=== PATIENT | female | born 1970 | race Caucasian/White ===

== ENCOUNTER 2022-10-10 12:32 | Emergency (ER) | payer OTHER ==
[2022-10-10 13:31] VITALS: TEMP 98.7
--- NOTE | 2022-10-10 14:02 | XRAY ---
Indication: Pain and swelling following fall. Comparison: None 3 portable views right ankle demonstrates 3 mm irregular linear ossification anterior to talus with soft tissue swelling concerning for displaced cortical fracture. Incidental small plantar heel spur and tiny cuboid accessory ossicles. No other bony, articular, or soft tissue abnormalities.
--- NOTE | 2022-10-10 14:06 | XRAY ---
Indication: Pain and swelling following fall. Comparison: None 3 portable nonweightbearing views right foot demonstrates new 3 mm irregular linear ossification anterior to talus with soft tissue swelling concerning for displaced cortical fracture. Stable incidental plantar heel spur and tiny cuboid accessory ossicles. No other bony, articular, or soft tissue abnormalities.
--- NOTE | 2022-10-10 15:06 | XRAY ---
Indication: Pain and swelling following injury. Multiple contiguous axial images obtained through the left foot. Comparison: None Left foot mortise appears anatomic. Tiny nondisplaced acute cortical fracture involving the anterior lateral corner calcaneus. 3 mm curvilinear ossification seen adjacent to anterior superior margin talus without soft tissue changes may represent old fracture. Elsewhere small plantar/tiny posterior heel spurs. Additional tiny spurring seen of anterior superior talus and calcaneal cuboid articulation. 5 mm subcortical cyst base 3rd metatarsal. Tiny accessory ossicles adjacent to cuboid and navicular bones. Visualized noncontrasted soft tissues including Achilles tendon unremarkable. Impression: 1. Tiny nondisplaced acute cortical fracture anterior lateral corner calcaneus. Query old tiny cortical fracture anterior superior talus. 2. Incidental spurring calcaneus and 3rd metatarsal cyst.
--- NOTE | 2022-10-10 15:06 | XRAY ---
Indication: Pain and swelling following injury. Multiple contiguous axial images obtained through the left ankle. Comparison: None Ankle mortise appears anatomic without abnormal effusion. Tibial plafond and talar dome appears smooth. Negative for tarsal coalition. Tiny nondisplaced acute cortical fracture involving the anterior lateral corner calcaneus. 3 mm curvilinear ossification seen adjacent to anterior superior margin talus without soft tissue changes may represent old fracture. Elsewhere small plantar/tiny posterior heel spurs. Additional tiny spurring seen of anterior superior talus and calcaneal cuboid articulation. 5 mm subcortical cyst base 3rd metatarsal. Tiny accessory ossicles adjacent to cuboid and navicular bones. Visualized noncontrasted soft tissues including Achilles tendon unremarkable. Impression: 1. Tiny nondisplaced acute cortical fracture anterior lateral corner calcaneus. Query old tiny cortical fracture anterior superior talus. 2. Incidental spurring posterior/plantar calcaneus and 3rd metatarsal cyst.
[2022-10-10] MEDS ORDERED: TORAdol 30 mg Injection IM ONE (15:16)
--- NOTE | 2022-10-10 15:23 | ERPHSYRPT ---
- History of Present Illness Source: patient Exam Limitations: no limitations Patient Subjective Stated Complaint: "I've stepped in hole in my yard this morning and twisted my ankle." Triage Nursing Assessment: Pt presents to ER with complaints of right ankle pain. Pt appears anxious and in pain. Noted slightly deformity and swelling to ankle. Can only ambulate with assist or staff or furniture. Limited ROM. Ice pack applied. Pt is alert and oriented x 3. Skin is pink, warm, and dry. Respirations are easy. Pt has no other injuries or complaints at this time. Physician History: 52 yo WF w R foot and ankle pain after stepping in a hole in her yard. Pain is moderate and worse w weight bearing. She denies other injuries at this time. Method of Injury: fell Occurred: just prior to arrival Severity of Pain-Max: moderate Severity of Pain-Current: moderate Lower Extremities Pain: foot: right, ankle: right Modifying Factors: Improves With: movement Associated Symptoms: unable to bear weight Allergies/Adverse Reactions: aspirin Allergy (Verified 10/10/22 13:31) Home Medications: PARoxetine HCL [Paroxetine HCl] 10 mg PO HS 10/10/22 [History] Hx Tetanus, Diphtheria Vaccination/Date Given: No Hx Influenza Vaccination/Date Given: No Hx Pneumococcal Vaccination/Date Given: No Immunizations Up to Date: No Travel Risk - International Travel Have you traveled outside of the country in past 3 weeks: No - Coronavirus Screening Are you exhibiting any of the following symptoms?: No - Vaccine Status Have you recieved a Covid-19 vaccination: No - Review of Systems Constitutional: No Symptoms Eyes: No Symptoms Ears, Nose, & Throat: No Symptoms Respiratory: No Symptoms Cardiac: No Symptoms Genitourinary Symptoms: No Symptoms Skin: No Symptoms Neurological: No Symptoms Psychological: No Symptoms Endocrine: No Symptoms Hematologic/Lymphatic: No Symptoms Immunological/Allergic: No Symptoms - Past Medical History Pertinent Past Medical History: Yes Psycho-Social History: Panic Disorder - Past Surgical History Past Surgical History: No - Social History Smoking Status: Never smoker Exposure to second hand smoke: No Drug Use: none Patient Lives Alone: No Significant Family History: cancer - Nursing Vital Signs Nursing Vital Signs: Initial Vital Signs Temperature 98.7 F 10/10/22 13:26 Pulse Rate 68 10/10/22 13:26 Respiratory Rate 22 10/10/22 13:26 Blood Pressure 138/80 10/10/22 13:26 O2 Sat by Pulse Oximetry 98 10/10/22 13:26 Pain Scale Pain Intensity 8 Hypertensive - Physical Exam General Appearance: no apparent distress Eyes, Ears, Nose, Throat Exam: normal ENT inspection, TMs normal, pharynx n ormal, moist mucous membranes Neck Exam: normal inspection, non-tender, supple, full range of motion, No Brudzinski, No Kernig's, No meningismus, No carotid bruit Cardiovascular/Respiratory Exam: normal breath sounds, regular rate/rhythm, heart sounds normal Gastrointestinal/Abdominal Exam: non-tender, soft Back Exam: normal inspection, No vertebral tenderness (No T or L-spine TTP) Hips Exam: bilateral: non-tender, normal inspection, normal range of motion, no evidence of injury Legs Exam: bilateral leg: non-tender, normal inspection, normal range of motion, no evidence of injury Knees Exam: bilateral knee: non-tender, normal inspection, normal range of motion, no evidence of injury, bone tenderness Ankle Exam: right ankle: pain (R ankle TTP laterally and medially/Minimal edema/Good pedal pulse, distal sensation, and capillary return/Mild edema) Foot Exam: right foot: pain (TTP proximally, dorsal aspect of R foot/good pedal pulse, distal sensation, and capillary return) Neuro/Tendon Exam: normal sensation, normal motor functions, normal tendon functions, responds to pain, no evidence tendon injury, No motor deficit, No sensory deficit Mental Status Exam: alert, oriented x 3, cooperative Skin Exam: normal color, warm, dry SpO2 Interpretation: normal SpO2: 98 O2 Delivery: Room Air - Course Nursing assessment & vital signs reviewed: Yes - Radiology Exams Ankle X-ray Interpretation: Discussed w/ radiologist (R ankle/foot irregularity anterior to talus) Foot X-ray Interpretation: Reviewed by me, Discussed w/ radiologist (R foot- irregularity anterior to Talus) - CT Exams Lower Extremity CT Interpretation: Discussed w/radiologist (RLE tiny nondisplaced cortical calcaneus fx) Ordered Tests: Active Orders 24 hr Category Date Time Status Cold Application STAT Care 10/10/22 13:28 Completed Crutches STAT Care 10/10/22 15:17 Completed Splint STAT Care 10/10/22 15:17 Completed ANKLE (3 VIEWS) Stat Exams 10/10/22 13:29 Completed FOOT (MINIMUM 3 VIEWS) Stat Exams 10/10/22 13:30 Completed LOWER EXTREMITY WO CONTRAST [CT] Stat Exams 10/10/22 14:13 Completed LOWER EXTREMITY WO CONTRAST [CT] Stat Exams 10/10/22 14:30 Completed Medication Summary Discontinued Medications Generic Name Dose Route Start Last Admin Trade Name Jason PRN Reason Stop Dose Admin Ketorolac Tromethamine 30 mg 10/10/22 15:16 10/10/22 15:30 Ketorolac Tromethamine 30 Mg/Ml Inj IM 10/10/22 15:17 30 mg STAT ONE Administration Ketorolac Tromethamine Confirm 10/10/22 15:29 Ketorolac Tromethamine 30 Mg/Ml Inj Administered 10/10/22 15:30 Dose 30 mg .ROUTE .STK-MED ONE - Progress Progress: improved Progress Note: 10/10/22 15:26 Nursing note and vital signs reviewed No food or housing insecurities noted XR results reviewed and shared w pt CT results reviewed and shared w pt 30mg IM toradol Walking boot RLE per nursing/NVI Crutches/teaching per nursing Pt established w Dr. Martinez and will f/u w him Counseled pt/family regarding: diagnosis, need for follow-up, rad results Medical Desision Making - Diagnostic Testing Radiological Interpretation: Reviewed by me - Risk of complications The pt has a mod risk of morbidity or mortality based on: Need for prescription drug management - Departure Departure Disposition: Home Clinical Impression: Calcaneus fracture, right Condition: Stable Critical Care Time: No Referrals: YOHANA LEAHY NP [Primary Care Provider] - Follow up/PCP as directed SANJUANITA MARSHALL DPM [ACTIVE STAFF] - Follow up/PCP as directed Instructions: Foot Fracture (DC) Additional Instructions: No weight bearing Ice for 12-24 hours Pain meds as needed Follow up with Dr. Diehl Prescriptions: Hydrocodone/Acetaminophen [Hydrocodone-Acetamin 5-325 mg] 1 tab PO Q4HPRN PRN #7 tablet MDD 4 PRN Reason: Pain
[2022-10-10] MEDS ORDERED: TORAdol 30 mg Injection ONE (15:29)
[2022-10-10 15:47] VITALS: BP 132/72; PULSE 72; RESP 20
[2022-10-10 16:30] VITALS: O2SAT 98
== END 2022-10-10 15:47 | disposition home or self-care (01) ==
LOC: ED 12:32
DX: S92.024A Nondisplaced fracture of anterior process of right calcaneus, initial encounter for closed fracture (principal); W18.42XA Slipping, tripping and stumbling without falling due to stepping into hole or opening, initial encounter; Y92.007 Garden or yard of unspecified non-institutional (private) residence as the place of occurrence of the external cause; Z79.891 Long term (current) use of opiate analgesic; Z79.899 Other long term (current) drug therapy; Z28.310 Unvaccinated for COVID-19
CPT/HCPCS: 73610; 73630; 73700; 96372; 99284; J1885; L4386

== ENCOUNTER 2024-01-31 15:38 | Emergency (ER) | payer OTHER ==
--- NOTE | 2024-01-31 15:40 | ERPHSYRPT ---
- History of Present Illness Time Seen by Provider: 01/31/24 15:40 Source: patient Exam Limitations: no limitations Physician History: This is a 53-year-old white female patient who drove herself to the emergency department by private vehicle and is a patient of nurse practitioner Denia. Patient complaint is dog bites x 4 to left lower leg. Patient ate food up some mentally 1 hour prior to arrival. Soon after, her dogs began fighting and she tried to intervene and one of the dogs bit her lower leg. This is a dog bite. The tetanus status is not up-to-date Timing/Duration: today Quality: painful Severity: moderate Location: extremities (Left lower leg) Possible Causes: other (Dog bite) Associated Symptoms: other (For dog bite puncture wounds skin of left lower leg) Allergies/Adverse Reactions: aspirin Allergy (Verified 01/31/24 15:48) Home Medications: Tazarotene 1 dose TP DAILY 01/31/24 [History] Varenicline Tartrate 0.5 mg PO BID 01/31/24 [History] Hx Tetanus, Diphtheria Vaccination/Date Given: No Hx Influenza Vaccination/Date Given: No Hx Pneumococcal Vaccination/Date Given: No Travel Risk - International Travel Have you traveled outside of the country in past 3 weeks: No - Emerging Infectious Disease Are you exhibiting symptoms associated with any current EIDs: No - Review of Systems Constitutional: No Symptoms Eyes: No Symptoms Ears, Nose, & Throat: No Symptoms Respiratory: No Symptoms Cardiac: No Symptoms Abdominal/Gastrointestinal: No Symptoms Genitourinary Symptoms: No Symptoms Musculoskeletal: No Symptoms Skin: Other (Your dog bite skin puncture wounds left lower extremity) Neurological: No Symptoms Psychological: No Symptoms Endocrine: No Symptoms Hematologic/Lymphatic: No Symptoms Immunological/Allergic: No Symptoms All Other Systems: Reviewed and Negative - Past Medical History Pertinent Past Medical History: Yes Psycho-Social History: Panic Disorder - Past Surgical History Past Surgical History: No Significant Family History: cancer - Female History Hx Last Menstrual Period: current - Social History Smoking Status: Never smoker Exposure to second hand smoke: No Drug Use: none Patient Lives Alone: No - Nursing Vital Signs Nursing Vital Signs: Initial Vital Signs Temperature 98.2 F 01/31/24 15:42 Pulse Rate 84 01/31/24 15:42 Respiratory Rate 18 01/31/24 15:42 Blood Pressure 175/115 01/31/24 15:42 O2 Sat by Pulse Oximetry 99 12/18/24 15:42 Pain Scale Pain Intensity 10 - Physical Exam General Appearance: no apparent distress, alert, anxiety Eye Exam: PERRL/EOMI, eyes nml inspection Ears, Nose, Throat Exam: normal ENT inspection, moist mucous membranes Neck Exam: normal inspection, non-tender, supple, full range of motion Respiratory Exam: airway intact, No chest tenderness, No respiratory distress Gastrointestinal/Abdomen Exam: No tenderness Pelvic Exam: not done Rectal Exam: not done Back Exam: normal inspection, normal range of motion, No CVA tenderness, No vertebral tenderness Extremity Exam: other (For dog bite puncture wounds of the skin left lower extremity. Range of puncture wound sites 0.5 cm to 1 cm. No foreign body. No active bleeding) Neurologic Exam: nml cerebellar function, nml station & gait, sensation nml Skin Exam: other (For skin puncture wounds from a dog bite left lower extremity) Lymphatic Exam: No adenopathy SpO2 Interpretation: normal O2 Delivery: Room Air - Course Nursing assessment & vital signs reviewed: Yes Ordered Tests: Medication Summary Generic Name Dose Route Start Last Admin Trade Name Nagaq PRN Reason Stop Dose Admin Amoxicillin/Clavulanate Potassium 500 mg 01/31/24 16:07 Amox Tr/Potassium Clavulanate 500 Mg Tablet PO 01/31/24 16:08 STAT ONE Diphtheria/Tetanus/Acell Pertussis 0.5 ml 01/31/24 16:08 Tdap --Diph,Pertuss(Acell),Tet Vac/Pf 0.5 Ml Vial IM 01/31/24 16:09 .ONCE ONE - Progress Progress: unchanged Progress Note: 01/31/24 16:14 My medical decision making and the assignment of low complexity is based on review of the patient's past medical history, review the patient's medication list, review of drug allergy list, history of present dose and physical findings on examination. No radiographic or laboratory studies are necessary at this time. Differential diagnosis includes but is not limited to puncture wound from dog bite, wound from dog scratches Counseled pt/family regarding: diagnosis, need for follow-up Medical Desision Making - Diagnostic Testing Diagnostic test were ordered, analyzed, and reviewed by me: No - Risk of complications The pt has a mod risk of morbidity or mortality based on: Need for prescription drug management - Departure Departure Disposition: Home Clinical Impression: Puncture wound, Dog bite of left lower leg Condition: Stable Critical Care Time: No Referrals: YOHANA LEAHY, [employer] [Primary Care Provider] - Follow up/PCP as directed Additional Instructions: Drink plenty of fluids. Take your medication as prescribed. Make sure you are taking food with your Augmentin antibiotic. Do not apply lotions ointments or creams to the wound site. May wash each of the wound sites 1-2 times a day with soap and water. Blot dry use a hairspring i inspector and cover with a nonstick gauze. Change the bandage as necessary. May add ibuprofen 600 mg orally with food 3 times a day for 5 days. Call your primary care provider tomorrow, 02/01/2024, to make arrangements for follow-up appointment to be seen in the next 3 to 5 days Prescriptions: Hydrocodone/APAP 5/325 [[place] 5/325 mg] 1 each PO Q8H PRN PRN #9 tablet MDD 3 PRN Reason: Pain Amoxicillin/Potassium Clav [Augmentin 500-125 Tablet] 1 each PO TID 7 Days #21 tablet
[2024-01-31 15:48] VITALS: RESP 18; TEMP 98.2
[2024-01-31] MEDS ORDERED: Adacel Vial IM ONE (16:11)
[2024-01-31] MEDS ORDERED: Augmentin 500-125 Tablet ONE (16:11)
[2024-01-31] MEDS: Augmentin 500-125 Tablet PO ONE (16:19)
[2024-01-31] MEDS: Adacel Vial IM ONE (16:20)
[2024-01-31 16:29] VITALS: BP 173/92; PULSE 72; O2SAT 100
== END 2024-01-31 16:37 | disposition home or self-care (01) ==
LOC: ED 15:38
DX: S81.832A Puncture wound without foreign body, left lower leg, initial encounter (principal); W54.0XXA Bitten by dog, initial encounter
CPT/HCPCS: 90471; 90715; 99282; 99283; A9270-GY